=== PATIENT | female | born 1960 | race African-American/Black ===

== ENCOUNTER 2017-05-23 04:56 | Emergency (ER) | payer OTHER ==
[2017-05-23 05:14] VITALS: BP 145/93; PULSE 94; TEMP 98.4; BMI 25.2
--- NOTE | 2017-05-23 05:28 | PDOC ---
History of Present Illness - General Chief Complaint: Hematuria Stated Complaint: ABD PAIN Time Seen by Provider: 05/23/17 05:16 - History of Present Illness Initial Comments: 05/23/17 05:26 CHIEF COMPLAINT: hematuria HISTORY OF PRESENT ILLNESS: 56 yo F with hx of seasonal allergies presents to ED with hematuria and abdominal and lower back pain. Patient reports she has had a UTI before and states this "henrik feels like that." Patient denies any fever, chills, diarrhea, but reports vomiting "a couple times today." She denies any history of kidney stones. No recent travel or sick contacts. PAST MEDICAL HISTORY: Denies past medical history FAMILY HISTORY: Mother HTN, Father "heart problems" SOCIAL HISTORY: Denies tobacco, alcohol, illicit drug use. SURGICAL HISTORY: Denies ALLERGIES: No known drug allergies REVIEW OF SYSTEMS General/Constitutional: Denies fever or chills. Denies weakness, weight change. HEENT: Denies change in vision. Denies ear pain or discharge. Denies sore throat. Cardiovascular: Denies chest pain or shortness of breath. Respiratory: Denies cough, wheezing, or hemoptysis. Gastrointestinal: Vomiting x 2 tonight. Denies diarrhea or constipation. Denies rectal bleeding. Genitourinary: Blood in urine since this morning. Denies dysuria, frequency. Musculoskeletal: Denies joint or muscle swelling or pain. Denies neck or back pain. Skin and breasts: Denies rash or easy bruising. PHYSICAL EXAM General Appearance: Well-appearing, appropriately dressed. No apparent distress , no intoxication. HEENT: EOMI, PERRLA. No conjunctival pallor. No photophobia, scleral icterus. Respiratory/Chest: Lungs CTAB. Cardiovascular: RRR. S1, S2. Gastrointestinal/Abdominal: Normal bowel sounds. Abdomen soft, non-distended. No tenderness or rebound tenderness. No organomegaly, pulsatile mass, guarding , hernia, hepatomegaly, splenomegaly. Musculoskeletal/Extremities: L CVA tenderness. Normal inspection. FROM of all extremities, normal capillary refill. No tenderness to extremities, pedal edema , swelling, erythema or deformity. Integumentary: Appropriate color, dry, warm. No cyanosis, erythema, jaundice or rash Neurologic: gaming cashier II-XII intact. Fully oriented, alert. Appropriate mood/affect. Motor strength 5/5. No appreciable EOM palsy, facial droop or sensory deficit. Past History - Past Medical History Allergies/Adverse Reactions: Allergies Allergy/AdvReac Type Severity Reaction Status Date / Time No Known Allergies Allergy Verified 05/23/17 05:11 Home Medications: Ambulatory Orders Albuterol Sulfate Inhaler - [Ventolin HFA Inhaler -] 2 inh PO Q4H PRN #1 inh Sulfamethoxazole/Trimethoprim [Bactrim Ds -] 1 tab PO BID #28 tablet 05/23/17 Asthma: Yes (seasonal) - Immunization History Immunization Up to Date: Yes - Suicide/Smoking/Psychosocial Hx Smoking History: Never smoked Have you smoked in the past 12 months: No Number of Cigarettes Smoked Daily: 0 Cigars Per Day: 0 Information on smoking cessation initiated: No Hx Alcohol Use: No Drug/Substance Use Hx: No Substance Use Type: None *Physical Exam - Vital Signs Last Vital Signs Temp Pulse Resp BP Pulse Ox 98.4 F 94 H 14 145/93 98 05/23/17 05:12 05/23/17 05:12 05/23/17 05:12 05/23/17 05:12 05/23/17 05:12 ED Treatment Course - LABORATORY CBC & Chemistry Diagram: 05/23/17 07:23 05/23/17 07:23 Medical Decision Making - Medical Decision Making 05/23/17 05:28 56 yo F with hx of seasonal allergies presents to ED with hematuria and abdominal and lower back pain. -UA, UCx, Upreg UA +7000+RBC pending WBC Case discussed in detail with oncoming emergency provider including history, physical exam and ancillary studies. In brief, this patient is being seen in the ED for a chief complaint of: hematuria, left flank pain I have completed the initial assessment interview note and have ordered the following labs: UA, UCx I have reviewed the following results: UA, pending WBC Pending results: spiral CT Plan for disposition as follows: pending Oncoming SERGE Calvert has assumed care for the patient and will complete the evaluation and treatment. *DC/Admit/Observation/Transfer Diagnosis at time of Disposition: Hematuria - Discharge Dispostion Disposition: HOME Condition at time of disposition: Good - Prescriptions Prescriptions: Sulfamethoxazole/Trimethoprim [Bactrim Ds -] 1 tab PO BID #28 tablet - Referrals Referrals: Monroe Allen MD [Primary Care Provider] - - Patient Instructions Printed Discharge Instructions: DI for Urinary Tract Infection (UTI), DI for Hematuria Additional Instructions: At this time due to your complaints of abdominal pain and left back pain, you will be treated for urinary tract infection for the next 2 weeks. Please also follow-up with Dr. Gay carpenter rough as discussed. Return to the nearest ED if symptoms worsen despite antibiotics. Drink at least 2 liters of water daily. - Post Discharge Activity Forms/Work/School Notes: Back to Work
[2017-05-23 06:16] LABS: URINE APPEARANCE CLOUDY; URINE BILIRUBIN NEGATIVE (NEGATIVE); URINE BLOOD 3+ (NEGATIVE); URINE COLOR AMBER; URINE GLUCOSE (UA) NEGATIVE (NEGATIVE); URINE KETONE NEGATIVE (NEGATIVE); URINE NITRITE NEGATIVE (NEGATIVE); URINE UROBILINOGEN NEGATIVE mg/dL (0.2-1.0)
[2017-05-23 06:28] LABS: URINE PROTEIN 2+ (NEGATIVE)
[2017-05-23 06:38] LABS: URINE BACTERIA MANY /hpf (NONE SEEN); URINE MUCUS FEW; URINE RBC 7632 /hpf (0-3)
[2017-05-23] MEDS ORDERED: SODIUM CHLORIDE 0.9% 1000 ML INFUS.BAG IV ONE (06:58)
--- NOTE | 2017-05-23 07:11 | PDOC ---
*Physical Exam - Vital Signs Last Vital Signs Temp Pulse Resp BP Pulse Ox 98.4 F 94 H 14 145/93 98 05/23/17 05:12 05/23/17 05:12 05/23/17 05:12 05/23/17 05:12 05/23/17 05:12 - Physical Exam Comments: 05/23/17 07:10 bedside ultrasound shows poss bladder stone measuring 0.5x1cm in size. no hydro noted. ED Treatment Course - ADDITIONAL ORDERS Additional order review: Laboratory Results 05/23/17 05:46 Urine Color Merle Urine Appearance Cloudy Urine pH 5.0 Urine Protein 2+ H Urine Glucose (UA) Negative Urine Ketones Negative Urine Blood 3+ H Urine Nitrite Negative Urine Bilirubin Negative Urine Urobilinogen Negative Urine RBC 7632 Ur Epithelial Cells Few Urine Bacteria Many Urine Mucus Few Urine HCG, Qual Negative *DC/Admit/Observation/Transfer Diagnosis at time of Disposition: Hematuria
[2017-05-23 07:33] LABS: BASOPHIL 0.9 % (0-2.0); EOSINOPHIL 0.5 % (0-4.5); MCH 28.2 pg (25.7-33.7); MCHC 32.4 g/dl (32.0-36.0); MEAN CELL VOLUME 86.9 fl (80-96); MEAN PLT VOLUME 7.7 fl (7.5-11.1); NEUTROPHILS 71.9 % (42.8-82.8); PLATELET COUNT 348 K/MM3 (134-434); WHITE BLOOD COUNT 12.6 K/mm3 (4.0-10.0)
[2017-05-23 08:07] LABS: ALBUMIN 3.6 g/dl (3.4-5.0); ALK PHOS 113 U/L (45-117); ANION GAP 7 (8-16); BILIRUBIN,TOTAL 0.5 mg/dL (0.2-1.0); CALCIUM 8.9 mg/dL (8.5-10.1); CO2 29 mmol/L (21-32); CREATININE 0.8 mg/dL (0.55-1.02); GLUCOSE,RANDOM 98 mg/dL (74-106); SGPT/ALT 20 U/L (12-78); TOT PROT 8.3 g/dl (6.4-8.2)
[2017-05-23 08:10] LABS: INR 1.2 (0.82-1.09); PROTHROMBIN TIME (PATIENT) 13.6 SEC (9.98-11.88)
[2017-05-23 08:13] LABS: ACTIVATED PTT 29.6 SECONDS (26.9-34.4)
[2017-05-23 08:17] LABS: SGOT/AST 23 U/L (15-37)
[2017-05-23 08:27] LABS: URINE WBC 282 /hpf (3-5)
--- NOTE | 2017-05-23 09:15 | PDOC ---
*Physical Exam - Vital Signs Last Vital Signs Temp Pulse Resp BP Pulse Ox 98.4 F 94 H 14 145/93 98 05/23/17 05:12 05/23/17 05:12 05/23/17 05:12 05/23/17 05:12 05/23/17 05:12 ED Treatment Course - LABORATORY CBC & Chemistry Diagram: 05/23/17 07:23 05/23/17 07:23 - ADDITIONAL ORDERS Additional order review: Laboratory Results 05/23/17 05/23/17 05/23/17 07:23 07:23 07:23 PT with INR 13.60 H INR 1.20 H PTT (Actin FS) 29.6 Sodium 140 Potassium 5.1 D Chloride 104 Carbon Dioxide 29 Anion Gap 7 L BUN 9 D Creatinine 0.8 D Creat Clearance w eGFR > 60 Random Glucose 98 Calcium 8.9 Total Bilirubin 0.5 D AST 23 D ALT 20 Alkaline Phosphatase 113 Total Protein 8.3 H Albumin 3.6 Urine Color Urine Appearance Urine pH Urine Protein Urine Glucose (UA) Urine Ketones Urine Blood Urine Nitrite Urine Bilirubin Urine Urobilinogen Urine RBC Urine WBC Ur Epithelial Cells Urine Bacteria Urine Mucus Urine HCG, Qual Blood Type O POSITIVE Antibody Screen Negative 05/23/17 05:46 PT with INR INR PTT (Actin FS) Sodium Potassium Chloride Carbon Dioxide Anion Gap BUN Creatinine Creat Clearance w eGFR Random Glucose Calcium Total Bilirubin AST ALT Alkaline Phosphatase Total Protein Albumin Urine Color Merle Urine Appearance Cloudy Urine pH 5.0 Urine Protein 2+ H Urine Glucose (UA) Negative Urine Ketones Negative Urine Blood 3+ H Urine Nitrite Negative Urine Bilirubin Negative Urine Urobilinogen Negative Urine RBC 7632 Urine WBC 282 Ur Epithelial Cells Few Urine Bacteria Many Urine Mucus Few Urine HCG, Qual Negative Blood Type Antibody Screen 05/23/17 07:23 RBC 4.65 MCV 86.9 MCHC 32.4 RDW 15.0 MPV 7.7 D Neutrophils % 71.9 D Lymphocytes % 19.4 D Monocytes % 7.3 Eosinophils % 0.5 Basophils % 0.9 - Medications Given in the ED: ED Medications Discontinued Medications Generic Name Dose Route Start Last Admin Trade Name Freq PRN Reason Stop Dose Admin Sodium Chloride 1,000 ml 05/23/17 06:58 05/23/17 07:31 Normal Saline - IV 05/23/17 06:59 1,000 ml ONCE ONE Administration Medical Decision Making - Medical Decision Making 05/23/17 07:12 Patient received in sign out from MYKEL Balbuena. Patient with complaints of hematuria lower abdominal pain along with left CVA tenderness. Patient's labs reviewed. patient with 7000 red cells in urine. Spiral CT ordered. 05/23/17 09:[address] shows no renal, ureteral or urinary bladder calculus or obstructive uropathy. There is no evidence of acute diverticulitis and a normal appearing appendix is noted. Urinary bladder is unremarkable. No previous urine cultures on file. Due to patient's complaints and left CVA tenderness on exam patient will be treated for pyelonephritis with Bactrim. Urine culture was sent. *DC/Admit/Observation/Transfer Diagnosis at time of Disposition: Hematuria - Discharge Dispostion Disposition: HOME Condition at time of disposition: Good - Referrals Referrals: Monroe Allen MD [Primary Care Provider] - - Patient Instructions Printed Discharge Instructions: DI for Hematuria, DI for Urinary Tract Infection (UTI) Additional Instructions: At this time due to your complaints of abdominal pain and left back pain, you will be treated for urinary tract infection for the next 2 weeks. Please also follow-up with Dr. Gay sheet sewer as discussed. Return to the nearest ED if symptoms worsen despite antibiotics. Drink at least 2 liters of water daily. - Post Discharge Activity
[2017-05-23 17:48] LABS: URINE LEUK ESTERASE TRACE (NEGATIVE)
--- NOTE | 2017-05-25 16:38 | PDOC ---
Patient Follow-up (Call Back) - Post ED Follow - Up Condition at time of discharge: Good Disposition at time of original discharge: HOME Reason for Call Back: Abnwl. Microbiology (Urine showed Escherichia coli with sensitivity to cephalosporins and resistant to Bactrim. Patient ordered for Levaquin and will sweet pickle maker with [facility] pharmacy. She knows she is to stop the other antibiotic.)
== END 2017-05-23 09:24 | disposition home or self-care (01) ==
LOC: JER 04:56
DX: R31.9 Hematuria, unspecified (principal); N21.0 Calculus in bladder
CPT/HCPCS: 36415; 74176; 80053; 81003; 81015; 84703; 85025; 85610; 85730; 86850; 86900; 86901; 87086; 87186; 99282-25

== ENCOUNTER 2019-07-30 08:33 | Inpatient (IN) | payer OTHER ==
--- NOTE | 2019-07-30 09:45 | PDOC ---
History of Present Illness - General Chief Complaint: Tremors Stated Complaint: PARKINSONS SYMPTOMS Time Seen by Provider: 07/30/19 09:12 History Source: Patient Exam Limitations: No Limitations Past History - Travel Traveled outside of the country in the last 30 days: No Close contact w/someone who was outside of country & ill: No - Past Medical History Allergies/Adverse Reactions: Allergies Allergy/AdvReac Type Severity Reaction Status Date / Time No Known Allergies Allergy Verified 05/23/17 05:11 Home Medications: Ambulatory Orders Albuterol Sulfate Inhaler - [Ventolin HFA Inhaler -] 2 inh PO Q4H PRN #1 inh Carbidopa/Levodopa [Carbidopa-Levodopa 25-100 Tab] 1 each PO TID 07/30/19 Asthma: Yes (seasonal) COPD: No - Immunization History Immunization Up to Date: Yes - Psycho Social/Smoking Cessation Hx Smoking History: Never smoked Have you smoked in the past 12 months: No Number of Cigarettes Smoked Daily: 0 Cigars Per Day: 0 Information on smoking cessation initiated: No Hx Alcohol Use: No Drug/Substance Use Hx: No Substance Use Type: None Review of Systems - Review of Systems Able to Perform ROS?: Yes Comments:: 07/30/19 14:58 CONSTITUTIONAL: Absent: fever, chills, diaphoresis, generalized weakness, malaise, loss of appetite HEENT: Absent: rhinorrhea, nasal congestion, throat pain, throat swelling, difficulty swallowing, mouth swelling, ear pain, eye pain, visual Changes CARDIOVASCULAR: Absent: chest pain, loss of consciousness, palpitations, irregular heart rate, peripheral edema RESPIRATORY: Absent: cough, shortness of breath, dyspnea with exertion, orthopnea, wheezing, stridor, hemoptysis GASTROINTESTINAL: Absent: abdominal pain, abdominal distension, nausea, vomiting, diarrhea, constipation, melena, hematochezia GENITOURINARY: Absent: dysuria, frequency, urgency, hesitancy, hematuria, flank pain, genital pain MUSCULOSKELETAL: Absent: myalgia, arthralgia, joint swelling SKIN: Absent: rash, itching, pallor HEMATOLOGIC/IMMUNOLOGIC: Absent: easy bleeding, easy bruising, lymphadenopathy, frequent infections ENDOCRINE: Absent: unexplained weight gain, unexplained weight loss, heat intolerance, cold intolerance NEUROLOGIC: Present: unsteady gait, tremors Absent: headache, focal weakness or paresthesias , dizziness, unsteady gait, seizure, mental status changes, bladder or bowel incontinence PSYCHIATRIC: Absent: anxiety, depression, suicidal or homicidal ideation, hallucinations. Is the patient limited Telugu proficient: No *Physical Exam - Vital Signs Last Vital Signs Temp Pulse Resp BP Pulse Ox 97.2 F L 73 16 139/87 99 07/30/19 08:53 07/30/19 08:53 07/30/19 08:45 07/30/19 08:53 07/30/19 08:53 - Physical Exam 07/30/19 15:02 GENERAL: Well developed, well nourished. Awake and alert. No acute distress. HEENT: Normocephalic, atraumatic. PERRLA, EOMI. No conjunctival pallor. Sclera are non- icteric. Moist mucous membranes. Oropharynx is clear. NECK: Supple. Full ROM. No JVD. Carotid pulses 2+ and symmetric, without bruits. No thyromegaly. No lymphadenopathy. CARDIOVASCULAR: Regular rate and rhythm. No murmurs, rubs, or gallops. Distal pulses are 2+ and symmetric. PULMONARY: No evidence of respiratory distress. Lungs clear to auscultation bilaterally. No wheezing, rales or rhonchi. ABDOMINAL: Soft. Non-tender. Non-distended. No rebound or guarding. No organomegaly. Normoactive bowel sounds. MUSCULOSKELETAL Normal range of motion at all joints. No bony deformities or tenderness. No CVA tenderness. EXTREMITIES: No cyanosis. No clubbing. No edema. No calf tenderness. SKIN: Warm and dry. Normal capillary refill. No rashes. No jaundice. NEUROLOGICAL: Pt with noticeable tremor in hands bilaterally and left lower extremity. Strength is intact bilaterally to the lower extremities. Alert, awake, appropriate. Cranial nerves 2-12 intact. No deficits to light touch and temperature in face, upper extremities and lower extremities. No motor deficits in the in face, upper extremities and lower extremities. Normoreflexic in the upper and lower extremities. Normal speech. Toes are down-going bilaterally. Shuffled gait noted without ataxia. PSYCHIATRIC: Cooperative. Good eye contact. Appropriate mood and affect. ED Treatment Course - LABORATORY CBC & Chemistry Diagram: 07/30/19 10:16 07/30/19 10:16 Medical Decision Making - Medical Decision Making 07/30/19 15:04 The patient is a 58-year-old female past medical history of Parkinson's, diagnosed 3 weeks ago, who presents to the ER today for worsening tremors and difficulty walking. She states that this morning she had an episode where she had tremors to her legs arms and head that were more intense than usual. This lasted for approximately 15 minutes before it resolved. She states that it is difficult to walk and she feels like she is going to fall. She also admits to her lower extremities feeling "stiff "denies falling or hitting her head. Patient states she was diagnosed with Parkinson's approximately [address] Fajardo, [facility] neurology. Denies fevers, chills, lightheadedness, dizziness, nausea, vomiting, headache, neck pain, urinary symptoms. A/P: Parkinson's disease, difficulty walking On exam patient with shuffled gait noted. Patient is unable to take more than a few steps without falling towards her left side. Cranial nerves II through XII intact Basic labs show no electrolyte abnormality. Likely tremors and difficulty walking due to her Parkinson's disease. Tried to reach patient's neurologist Dr. Fajardo 3 times. The line just rang with no answering service. Consulted with Dr. Kang; advised to admit patient given inability to walk. He states he will see her in the hospital. Confirmed patient's medications with her pharmacy ([facility]) Takes her Sinemet as directed. PCP is Dr. Sarah Allen Will admit to [facility] for inability to ambulate Discharge - Discharge Information Problems reviewed: Yes Clinical Impression/Diagnosis: Unable to ambulate, Parkinsons Condition: Stable - Admission Yes - Follow up/Referral Referrals: Monroe Allen MD [Primary Care Provider] - - Patient Discharge Instructions - Post Discharge Activity
[2019-07-30 10:27] LABS: EPI CELLS 11.8 /HPF (0-5/HPF); HYALINE CASTS 42 /lpf (0-8); PH,URINE 5.5 (5.0-8.0); URINE APPEARANCE CLOUDY; URINE BACTERIA 239.5 /hpf (NEGATIVE); URINE BILIRUBIN NEGATIVE (NEGATIVE); URINE COLOR YELLOW; URINE GLUCOSE (UA) NEGATIVE (NEGATIVE); URINE KETONE 1+ (NEGATIVE); URINE LEUK ESTERASE TRACE (NEGATIVE); URINE NITRITE NEGATIVE (NEGATIVE); URINE PROTEIN NEGATIVE (NEGATIVE); URINE WBC 15 /hpf (0-5)
[2019-07-30 10:32] LABS: BASO % 1.3 % (0-2.0); HEMOGLOBIN 13.7 GM/dL (10.7-15.3); LYMPH % 27.8 % (8-40); MCH 28.8 pg (25.7-33.7); MCHC 32.7 g/dl (32.0-36.0); MEAN PLT VOLUME 8.4 fl (7.5-11.1); MONO % 6.2 % (3.8-10.2); NEUT % 63.7 % (42.8-82.8); PLATELET COUNT 249 K/MM3 (134-434); RBC 4.78 M/mm3 (3.60-5.2); RDW 15.5 % (11.6-15.6); WHITE BLOOD COUNT 6.3 K/mm3 (4.0-10.0)
[2019-07-30 11:05] LABS: URINE CRYSTALS FEW /hpf; URINE RBC 13.2 /hpf (0-4)
[2019-07-30 11:18] LABS: ALBUMIN 3.8 g/dl (3.4-5.0); BILIRUBIN,TOTAL 0.4 mg/dL (0.2-1); BLOOD UREA NITROGEN 12.1 mg/dL (7-18); CALCIUM 9.1 mg/dL (8.5-10.1); CREATININE 0.7 mg/dL (0.55-1.3); POTASSIUM 4.2 mmol/L (3.5-5.1); TOT PROT 7.4 g/dl (6.4-8.2)
[2019-07-30] MEDS ORDERED: CARBIDOPA/LEVODOPA 25/100 TABLET (FP) ONE (16:15)
[2019-07-30] MEDS ORDERED: ALBUTEROL SO4 0.083% IH SOL 2.5 MG/3 ML VIAL.NEB. NEB ONE (16:15)
--- NOTE | 2019-07-30 16:18 | HP ---
<Rose Marie Jones - Last Filed: 07/30/19 18:18> Hospitalist Medicine Admission 58 y/o F with PMH asthma and recently dx Parkinson's, states that this AM, she had a 15 minute episode of "shaking and tremors." Tremor first started in her upper and lower extremities, then was localized to her upper extremities. States she was unable to control it. Was not a/w LOC, fall, changes in mentation , weakness, urinary or bowel incontinence or tongue biting. States that once it improved, she was able to call a friend and her brother, who called 911 and she was subsequently brought to the [facility] ED. Currently, pt with resting tremor. Also endorses discomfort in her shoulders b/l as well as subjective chills. No other sx; denies CARDOZA, fever, SOB, chest pain or pressure or changes in urinary or bowel function. At baseline, pt lives independently. Was able to function on own and perform her ADL's, until she fell two weeks ago. Since then, she has had issues with her balance. Recently, she has also had visual hallucinations; seeing black and white spots in her vision when she opens and closes her eyes. 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 has been unable to work w/ her current sx. denies cigarette, alcohol, or drug use Allergies No Known Allergies Allergy (Verified 05/23/17 05:11) HOME MEDICATIONS: Home Medications Medication Instructions Recorded Albuterol Sulfate Inhaler - 2 inh PO Q4H PRN #1 inh 11/21/14 [Ventolin HFA Inhaler -] Carbidopa/Levodopa 1 each PO TID 07/30/19 [Carbidopa-Levodopa 25-100 Tab] PHYSICAL EXAMINATION Vital Signs - 24 hr 07/30/19 07/30/19 07/30/19 08:45 08:53 15:56 Temperature 97.6 F 97.2 F L 98.3 F Pulse Rate 96 H Pulse Rate [ 73 68 Left] Respiratory 16 Rate Blood Pressure 138/79 Blood Pressure 139/87 97/66 [Left] O2 Sat by Pulse 98 99 96 Oximetry (%) General: resting in bed, in NAD HEENT: NCAT, moist MM neck: supple cardio: S1, S2 RRR. 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 no pronator drift in UE, LE. however w/ resting tremor in UE, LE. +dysmetria. +cogwheel rigidity. +difficult gait; favors L Laboratory Results - last 24 hr 07/30/19 07/30/19 07/30/19 10:01 10:16 10:16 WBC 6.3 RBC 4.78 Hgb 13.7 Hct 42.0 MCV 88.0 MCH 28.8 MCHC 32.7 RDW 15.5 Plt Count 249 D MPV 8.4 Absolute Neuts (auto) 4.0 Neutrophils % 63.7 Lymphocytes % 27.8 D Monocytes % 6.2 Eosinophils % 1.0 D Basophils % 1.3 Nucleated RBC % 0 Sodium 141 Potassium 4.2 Chloride 106 Carbon Dioxide 29 Anion Gap 5 L BUN 12.1 Creatinine 0.7 Est GFR (CKD-EPI)AfAm 111.47 Est GFR (CKD-EPI)NonAf 96.18 Random Glucose 95 Calcium 9.1 Total Bilirubin 0.4 AST 14 L ALT 20 Alkaline Phosphatase 104 Total Protein 7.4 Albumin 3.8 Urine Color Yellow Urine Appearance Cloudy Urine pH 5.5 Ur Specific [place] 1.028 Urine Protein Negative Urine Glucose (UA) Negative Urine Ketones 1+ H Urine Blood Negative Urine Nitrite Negative Urine Bilirubin Negative Urine Urobilinogen 1.0 Ur Leukocyte Esterase Trace Urine WBC (Auto) 15 Urine RBC (Auto) 13.2 Urine Casts (Auto) 42 U Pathogenic Cast Auto None seen U Epithel Cells (Auto) 11.8 Urine Crystals (Auto) Few Urine Bacteria (Auto) 239.5 Micro 07/30: Ucx: pending Imaging 07/30: CXR: without acute abnormality; however report pending ASSESSMENT/PLAN: 58 y/o F with PMH asthma and recently dx Parkinson's, states that this AM, she had a 15 minute episode of "shaking and tremors." Admitted for inability to ambulate. #Essential Tremors, inability to ambulate #anxiety d/o -physical therapy -trial of klonopin, lexapro -f/u b12, folate, RPR -f/u brain MRI w/o con -fall precautions -neurochecks -neuro: Dr. Kang #parkinson's dz -c/w sinemet #asthma -currently not in exacerbation -c/w ventolin PRN #F/E/N not required at this time continue to follow lytes reg diet #PPX DVT: SCD's #Dispo admit to med-surg Visit type - Emergency Visit Emergency Visit: Yes ED Registration Date: 07/30/19 Care time: The patient presented to the Emergency Department on the above date and was hospitalized for further evaluation of their emergent condition. - New Patient This patient is new to me today: Yes Date on this admission: 07/30/19 - Critical Care Critical Care patient: No <Juno Pereyra - Last Filed: 08/02/19 02:42> Seen and examined; please refer to resident note for further historical information. I agree with their assessment and plan as documented aside from as supplemented by myself. I independently verified all baxter historical information and exam findings and independently reviewed all diagnostic information. No further issues; agree with subjective documentation above. In summation, the patient is a 58 y/o female with a PMH significant for PD with symptoms more with a diffuse rather than focal neurologic presentation, so to say. She has no further complaints and is doing well otherwise. Pending neuro eval and further diagnostics. Continue to monitor on the medicine service. 10 sys ROS done and negative aside from HPI HOME MEDICATIONS: Home Medications Medication Instructions Recorded Albuterol Sulfate Inhaler - 2 inh PO Q4H PRN #1 inh 11/21/14 [Ventolin HFA Inhaler -] Carbidopa/Levodopa 1 each PO TID 07/30/19 [Carbidopa-Levodopa 25-100 Tab] PHYSICAL EXAMINATION Vital Signs - 24 hr 07/30/19 07/30/19 07/30/19 15:56 17:30 17:40 Temperature 98.3 F 97.7 F Pulse Rate 90 Pulse Rate [ 68 Left] Respiratory 18 18 Rate Blood Pressure 128/72 Blood Pressure 97/66 [Left] O2 Sat by Pulse 96 98 Oximetry (%) 07/30/19 07/30/19 07/31/19 21:00 22:00 02:26 Temperature 98.5 F Pulse Rate 89 80 Pulse Rate [ Left] Respiratory 18 18 18 Rate Blood Pressure 102/68 125/82 Blood Pressure [Left] O2 Sat by Pulse 96 Oximetry (%) 07/31/19 07/31/19 07/31/19 06:41 09:00 10:00 Temperature 98.5 F 98.6 F Pulse Rate 69 82 Pulse Rate [ Left] Respiratory 18 18 18 Rate Blood Pressure 109/61 109/64 Blood Pressure [Left] O2 Sat by Pulse 96 Oximetry (%) GENERAL: Awake, alert, and fully oriented, in no acute distress. HEAD: Normal with no signs of trauma. EYES: Pupils equal, round and reactive to light, EARS, NOSE, THROAT: Ears normal, nares patent, oropharynx clear without exudates NECK: Normal range of motion, supple without lymphadenopathy, JVD, or masses. LUNGS: Breath sounds equal, clear to auscultation bilaterally. No wheezes, and no crackles. No accessory muscle use. HEART: Regular rate and rhythm, normal S1 and S2 without murmur, rub or gallop. ABDOMEN: Soft, nontender, not distended, normoactive bowel sounds MUSCULOSKELETAL: Normal range of motion at all joints. No bony deformities or tenderness. No CVA tenderness. NEUROLOGICAL: Cranial nerves II-XII intact. Normal speech. No gait eam due to fall risk. She has nonspecific weakness that is not focal. Tremor noted with some rigidity. PSYCHIATRIC: Cooperative. Good eye contact. Appropriate mood and affect. SKIN: Warm, dry, normal turgor, no rashes or lesions noted, normal capillary refill. Laboratory Results - last 24 hr 07/30/19 07/30/19 07/31/19 10:16 10:16 07:00 WBC 7.2 RBC 4.61 Hgb 13.3 Hct 41.0 MCV 89.0 MCH 28.9 MCHC 32.4 RDW 15.7 H Plt Count 241 MPV 9.1 Absolute Neuts (auto) 3.5 Neutrophils % 48.4 D Lymphocytes % 41.8 H D Monocytes % 6.2 Eosinophils % 2.7 D Basophils % 0.9 Nucleated RBC % 0 Sodium 141 Potassium 4.2 Chloride 106 Carbon Dioxide 29 Anion Gap 5 L BUN 12.1 Creatinine 0.7 Est GFR (CKD-EPI)AfAm 111.47 Est GFR (CKD-EPI)NonAf 96.18 Random Glucose 95 Calcium 9.1 Phosphorus Magnesium Total Bilirubin 0.4 AST 14 L ALT 20 Alkaline Phosphatase 104 Total Protein 7.4 Albumin 3.8 Vitamin B12 635 Serum Folate 33 H TSH 0.80 RPR Titer Nonreactive 07/31/19 07:00 WBC RBC Hgb Hct MCV MCH MCHC RDW Plt Count MPV Absolute Neuts (auto) Neutrophils % Lymphocytes % Monocytes % Eosinophils % Basophils % Nucleated RBC % Sodium 143 Potassium 3.9 Chloride 108 H Carbon Dioxide 27 Anion Gap 7 L BUN 17.8 Creatinine 0.7 Est GFR (CKD-EPI)AfAm 111.47 Est GFR (CKD-EPI)NonAf 96.18 Random Glucose 89 Calcium 9.2 Phosphorus 4.5 Magnesium 2.4 Total Bilirubin AST ALT Alkaline Phosphatase Total Protein Albumin Vitamin B12 Serum Folate TSH RPR Titer CT reviewed MRI pending echo pending ASSESSMENT/PLAN: 58 y/o F with PMH asthma and recently dx Parkinson's, states that this AM, she had a 15 minute episode of "shaking and tremors." Admitted for inability to ambulate. Agree with problem list per resident note Will obtain diagnostics as ordered but I have a very low suspicion of an acute neurological event persay. ontinue current CD/LD and monitor neuro checks and PT consultation. Full Code ATTENDING PHYSICIAN STATEMENT I saw and evaluated the patient. I reviewed the resident's note and discussed the case with the resident. I agree with the resident's findings and plan as documented. SUBJECTIVE: OBJECTIVE: ASSESSMENT AND PLAN:
[2019-07-30] MEDS: ALBUTEROL SO4 0.083% IH SOL 2.5 MG/3 ML VIAL.NEB. NEB PRN (17:00)
[2019-07-30] MEDS ORDERED: CARBIDOPA/LEVODOPA 25/100 TABLET (FP) PO ONE (17:10)
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
[2019-07-30 18:55] VITALS: BMI 23.9
[2019-07-30] MEDS: CARBIDOPA/LEVODOPA 25/100 TABLET (FP) PO SCH (21:34)
[2019-07-30] MEDS: clonazePAM 0.5 MG TABLET PO SCH (21:34)
[2019-07-31] MEDS: CARBIDOPA/LEVODOPA 25/100 TABLET (FP) PO SCH ×2 (06:15→13:53)
[2019-07-31 08:35] LABS: BASO % 0.9 % (0-2.0); EOS % 2.7 % (0-4.5); HEMOGLOBIN 13.3 GM/dL (10.7-15.3); LYMPH % 41.8 % (8-40); MCH 28.9 pg (25.7-33.7); MCHC 32.4 g/dl (32.0-36.0); MEAN PLT VOLUME 9.1 fl (7.5-11.1); MONO % 6.2 % (3.8-10.2); NEUT % 48.4 % (42.8-82.8); PLATELET COUNT 241 K/MM3 (134-434); RBC 4.61 M/mm3 (3.60-5.2); RDW 15.7 % (11.6-15.6); WHITE BLOOD COUNT 7.2 K/mm3 (4.0-10.0)
[2019-07-31 09:34] LABS: BLOOD UREA NITROGEN 17.8 mg/dL (7-18); CALCIUM 9.2 mg/dL (8.5-10.1); CREATININE 0.7 mg/dL (0.55-1.3); MAGNESIUM 2.4 mg/dL (1.8-2.4); PHOSPHOROUS 4.5 mg/dL (2.5-4.9); POTASSIUM 3.9 mmol/L (3.5-5.1)
[2019-07-31] MEDS: ESCITALOPRAM OXALATE 10 MG TABLET (FP) PO SCH (09:59)
[2019-07-31] MEDS: clonazePAM 0.5 MG TABLET PO SCH ×2 (10:01→21:56)
--- NOTE | 2019-07-31 10:07 | PN ---
Progress Note (short form) - Note Progress Note: Hospitalist Medicine States she feels better, however c/o 30 second episode of UE, LE tremors this AM that self-resolved. In good spirits currently, eating breakfast Vitals 07/31/19 10:00 Temperature 98.6 F Pulse Rate 82 Respiratory 18 Rate Blood Pressure 109/64 Physical Exam General: resting in bed, in NAD HEENT: NCAT, moist MM neck: supple cardio: S1, S2 RRR. 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 w/ resting tremor in UE, LE. +cogwheel rigidity. gait not observed Laboratory Tests 07/30/19 07/31/19 07/31/19 10:16 07:00 07:00 WBC 7.2 Hgb 13.3 Hct 41.0 Plt Count 241 Sodium 143 Potassium 3.9 Chloride 108 H Anion Gap 7 L BUN 17.8 Creatinine 0.7 Random Glucose 89 Calcium 9.2 RPR Titer Pending Microbiology 07/30/19 10:01 Urine - Urine Clean Catch Urine Culture - Final Lactose Fermenting Neg Bacilli (<10,000 cfu) Imaging 07/30/19 CXR: no acute changes; small RUL granuloma present since 11/2014, no adverse change 07/30/19: Brain MRI: no infarct. focal mildly increased T2/FLAIR intensity in the posterior limbs of the internal capsules bilaterally. this appearance may be noted in the setting of amyotrophic lateral sclerosis although also described in healthy patients. Assessment/Plan 58 y/o F with PMH asthma and recently dx Parkinson's, states that this AM, she had a 15 minute episode of "shaking and tremors." Admitted for inability to ambulate. #Essential Tremors, inability to ambulate #anxiety d/o -trial of klonopin, lexapro -b12, folate WNL -RPR pending -brain MRI (-) for infarct, however w/ increased signal intensity - ?r/o ALS -fall precautions -still pending PT evaluation -neurochecks -neuro: Dr. Kang #parkinson's dz -c/w sinemet #asthma -currently not in exacerbation -c/w ventolin PRN #F/E/N not required at this time continue to follow lytes reg diet #PPX DVT: SCD's #Dispo monitoring on med-surg pending PT , further neuro recs lives independently at home may need assistance <Rose Marie Jones - Last Filed: 07/31/19 14:13> - Note Progress Note: Seen and examined; please refer to above resident note for further historical information. Independently verified all baxter historical and PE findings alongside labs and diagnostics. I agree with the above plan as documented aside from as supplemented by myself below. Seen and examined; agree with subjective information as documented. 10 sys ROS done and negative aside from HPI VS labs imaging reviewed NAD AAO resting in bed NC AT EOMI PERRLA HR wnl, +s1/2 CN2-12 wnl, no fnd Normal mood, appropriate behavior Diagnostics reviewed ASSESSMENT/PLAN: Patient seen and examined;symptoms improved. Less likely acute CVA. Problems include: -Essential Tremors -Anxiety disorder -Parkinson's disease -Asthma -Deconditioing No change in code status Monitor on medicine service DVT ppx reviewed <Juno Pereyra - Last Filed: 08/04/19 13:06>
[2019-07-31] MEDS: ACETAMINOPHEN 500 MG TABLET (FP) PO PRN (11:15)
--- NOTE | 2019-07-31 17:12 | PN ---
Progress Note, Physician History of Present Illness: kasey noted chart reviewed Patient seen on the floor in the presence of her mother and her sister lengthy conversation with the family regarding the concussion that happened in June at work Patient is tolerating the medication very well patient looks and feels much better patient is on Klonopin Patient still on the carbidopa MRI noted - Current Medication List Current Medications: Active Medications Acetaminophen (Tylenol -) 500 mg PO Q6H PRN PRN Reason: PAIN LEVEL 7 - 10 Last Admin: 07/31/19 11:15 Dose: 500 mg Albuterol Sulfate (Ventolin 0.083% Nebulizer Soln -) 1 amp NEB RQ4H PRN PRN Reason: SHORT OF BREATH/WHEEZING Last Admin: 07/30/19 17:00 Dose: 1 amp Clonazepam (Klonopin -) 0.5 mg PO BID [facility] Last Admin: 07/31/19 10:01 Dose: 0.5 mg Escitalopram Oxalate (Lexapro -) 5 mg PO DAILY [facility] Last Admin: 07/31/19 09:59 Dose: 5 mg - Objective Vital Signs: Vital Signs Temperature 98.5 F 07/31/19 14:00 Pulse Rate 79 07/31/19 14:00 Respiratory Rate 18 07/31/19 14:00 Blood Pressure 98/56 L 07/31/19 14:00 O2 Sat by Pulse Oximetry (%) 96 07/31/19 09:00 Constitutional: Yes: Well Nourished Eyes: Yes: WNL HENT: Yes: WNL Neurological: Yes: Alert, Oriented, Babinski positive ...Motor Strength: WNL Labs: CBC, BMP 07/31/19 07:00 07/31/19 07:00 Problem List - Problems (1) Tremors of nervous system Assessment/Plan: NO EVIDENCE OF pARKINSON'S DISEASE NO EVIDENCE OF als MOTOR NEURON DISEASE aNXIETY 1. tAPER THE CARBIDOPA 2. cONTINUE THE kLONOPIN 3. lEXAPRO . dISCHARGE PLANNING Code(s): R25.1 - TREMOR, UNSPECIFIED
[2019-07-31] MEDS ORDERED: CARBIDOPA/LEVODOPA 25/100 TABLET (FP) PO ONE (17:30)
--- NOTE | 2019-08-01 05:20 | EKG ---
Test Reason : Blood Pressure : / mmHG Vent. Rate : 083 BPM Atrial Rate : 083 BPM P-R Int : 130 ms QRS Dur : 114 ms QT Int : 372 ms P-R-T Axes : 055 069 019 degrees QTc Int : 437 ms NORMAL SINUS RHYTHM INCOMPLETE RIGHT BUNDLE BRANCH BLOCK NONSPECIFIC T WAVE ABNORMALITY ABNORMAL ECG WHEN COMPARED WITH ECG OF 21-OCT-2013 19:53, NO SIGNIFICANT CHANGE WAS FOUND Confirmed by CODY DUTTON MD ([id number]) on 08/01/2019 5:20:21 AM Referred By: Confirmed By:CODY DUTTON MD
[2019-08-01 08:17] LABS: BLOOD UREA NITROGEN 18.1 mg/dL (7-18); CALCIUM 9.3 mg/dL (8.5-10.1); CREATININE 0.6 mg/dL (0.55-1.3); MAGNESIUM 2.3 mg/dL (1.8-2.4); PHOSPHOROUS 4.2 mg/dL (2.5-4.9); POTASSIUM 4.1 mmol/L (3.5-5.1)
[2019-08-01 08:22] LABS: BASO % 1.2 % (0-2.0); EOS % 4.7 % (0-4.5); HEMOGLOBIN 13.2 GM/dL (10.7-15.3); LYMPH % 37.5 % (8-40); MCH 28.5 pg (25.7-33.7); MCHC 32.1 g/dl (32.0-36.0); MEAN CELL VOLUME 88.7 fl (80-96); MEAN PLT VOLUME 8.8 fl (7.5-11.1); MONO % 6.5 % (3.8-10.2); NEUT % 50.1 % (42.8-82.8); PLATELET COUNT 230 K/MM3 (134-434); RBC 4.62 M/mm3 (3.60-5.2); RDW 15.8 % (11.6-15.6); WHITE BLOOD COUNT 5.5 K/mm3 (4.0-10.0)
[2019-08-01] MEDS: clonazePAM 0.5 MG TABLET PO SCH ×2 (10:46→21:03)
[2019-08-01] MEDS: ESCITALOPRAM OXALATE 10 MG TABLET (FP) PO SCH (10:46)
--- NOTE | 2019-08-01 11:49 | PN ---
Progress Note (short form) - Note Progress Note: Hospitalist Medicine Endorses 1 minute episode of tremors in upper and lower extremities this AM. Otherwise "feeling better" Vitals 08/01/19 08/01/19 10:29 10:45 Temperature 98.6 F Pulse Rate 89 Respiratory 20 Rate Blood Pressure 112/77 Physical Exam General: resting in bed, in NAD HEENT: NCAT, moist MM neck: supple cardio: S1, S2 RRR. 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 +cogwheel rigidity. gait not observed Laboratory Tests 07/30/19 08/01/19 08/01/19 10:16 06:40 06:40 WBC 5.5 Hgb 13.2 Hct 41.0 Plt Count 230 Sodium 142 Potassium 4.1 Chloride 107 Carbon Dioxide 30 BUN 18.1 H Creatinine 0.6 Est GFR (CKD-EPI)NonAf 101.18 RPR Titer Nonreactive Microbiology 07/30/19 10:01 Urine - Urine Clean Catch Urine Culture - Final Lactose Fermenting Neg Bacilli (<10,000) Imaging 07/30/19 CXR: no acute changes; small RUL granuloma present since 11/2014, no adverse change 07/30/19: Brain MRI: no infarct. focal mildly increased T2/FLAIR intensity in the posterior limbs of the internal capsules bilaterally. this appearance may be noted in the setting of amyotrophic lateral sclerosis although also described in healthy patients. Assessment/Plan 58 y/o F with PMH asthma and recently dx Parkinson's, states that this AM, she had a 15 minute episode of "shaking and tremors." Admitted for inability to ambulate. #Essential Tremors, inability to ambulate #anxiety d/o -trial of klonopin, lexapro -b12, folate WNL -brain MRI (-) for infarct, however w/ increased signal intensity - ?r/o ALS -fall precautions -still pending PT evaluation; may need SNF placement -neurochecks -neuro: Dr. Kang #parkinson's dz -taper sinemet #asthma -currently not in exacerbation -c/w ventolin PRN #F/E/N not required at this time continue to follow lytes reg diet #PPX DVT: SCD's #Dispo monitoring on med-surg pending PT will likely need placement as lives independently at home cleared by neuro <Rose Marie Jones - Last Filed: 08/01/19 12:52> - Note Progress Note: Seen and examined; please refer to above resident note for further historical information. Independently verified all baxter historical and PE findings alongside labs and diagnostics. I agree with the above plan as documented aside from as supplemented by myself below. Seen and examined; agree with subjective information as documented. 10 sys ROS done and negative aside from HPI VS labs imaging reviewed NAD AAO resting in bed NC AT EOMI PERRLA HR wnl, +s1/2 CN2-12 wnl, no fnd Normal mood, appropriate behavior Diagnostics reviewed ASSESSMENT/PLAN: Patient seen and examined; she is doing well and is continuing to pend placement. Problems include: -Essential Tremors (was admitted for acute exacerbation, affecting ambulation now resolved, patient is able to ambulate; cleared by Neurology) -Anxiety disorder (on Klonopin and Lexapro adjust dose accordingly; was seen by Dr. Kang neurology, patient is for 5Flurodopa PET at [place] [facility]. Improved off carbidopa.) -Parkinson's disease (per neuro, d/c carbidopa, since this anxiety improved) -Asthma (No acute issues, PRN albuterol) -Deconditioing (SNF placement pending authorization) No change in code status Monitor on medicine service DVT ppx reviewed <Juno Pereyra - Last Filed: 08/04/19 13:04>
--- NOTE | 2019-08-01 19:05 | PN ---
Progress Note, Physician History of Present Illness: fells better events note d Chart reviwed alert awake Tolerating meds well No side effects to taper dopa - Current Medication List Current Medications: Active Medications Acetaminophen (Tylenol -) 500 mg PO Q6H PRN PRN Reason: PAIN LEVEL 7 - 10 Last Admin: 07/31/19 11:15 Dose: 500 mg Albuterol Sulfate (Ventolin 0.083% Nebulizer Soln -) 1 amp NEB RQ4H PRN PRN Reason: SHORT OF BREATH/WHEEZING Last Admin: 07/30/19 17:00 Dose: 1 amp Clonazepam (Klonopin -) 0.5 mg PO BID [facility] Last Admin: 08/01/19 10:46 Dose: 0.5 mg Escitalopram Oxalate (Lexapro -) 5 mg PO DAILY [facility] Last Admin: 08/01/19 10:46 Dose: 5 mg - Objective Vital Signs: Vital Signs Temperature 98.8 F 08/01/19 14:00 Pulse Rate 78 08/01/19 14:00 Respiratory Rate 20 08/01/19 14:00 Blood Pressure 107/65 08/01/19 14:00 O2 Sat by Pulse Oximetry (%) 97 08/01/19 10:30 Constitutional: Yes: Well Nourished Eyes: Yes: WNL Neurological: Yes: Alert, Oriented, Babinski negative ...Motor Strength: WNL Labs: CBC, BMP 08/01/19 06:40 08/01/19 06:40 Problem List - Problems (1) Tremors of nervous system Assessment/Plan: 1. Stop carbidopa 2. Lexapro 10 3. Tylenol prn headache 4. Will arrange for 5Flurodopa PET Ct at [place] as OP DC planning Code(s): R25.1 - TREMOR, UNSPECIFIED
[2019-08-02] MEDS: ESCITALOPRAM OXALATE 10 MG TABLET (FP) PO SCH (08:27)
[2019-08-02] MEDS: clonazePAM 0.5 MG TABLET PO SCH ×2 (10:32→22:16)
[2019-08-02 10:42] LABS: BLOOD UREA NITROGEN 18.8 mg/dL (7-18); CALCIUM 9.1 mg/dL (8.5-10.1); CREATININE 0.8 mg/dL (0.55-1.3); MAGNESIUM 2.2 mg/dL (1.8-2.4); PHOSPHOROUS 4.1 mg/dL (2.5-4.9); POTASSIUM 4.2 mmol/L (3.5-5.1)
[2019-08-02 10:53] LABS: HEMATOCRIT 41.8 % (32.4-45.2); HEMOGLOBIN 13.6 GM/dL (10.7-15.3); MCH 29.3 pg (25.7-33.7); MCHC 32.7 g/dl (32.0-36.0); MEAN CELL VOLUME 89.6 fl (80-96); PLATELET COUNT 233 K/MM3 (134-434); RBC 4.66 M/mm3 (3.60-5.2); RDW 15.4 % (11.6-15.6); WHITE BLOOD COUNT 6.1 K/mm3 (4.0-10.0)
--- NOTE | 2019-08-02 15:17 | PN ---
Progress Note (short form) - Note Progress Note: Hospitalist Medicine Feeling better today. Still endorses intermittent "shaking" episodes. Encouraged ambulation Vitals 08/02/19 10:27 Temperature 98.6 F Pulse Rate 71 Respiratory 20 Rate Blood Pressure 111/71 Physical Exam General: resting in bed, in NAD HEENT: NCAT, moist MM neck: supple cardio: S1, S2 RRR. no r/m/g pulm: CTA B/l abdomen: soft, nontender, nondistended LE: 2+ pulses, no edema neuro: product support consultant 2-12 grossly intact. +cogwheel rigidity. 3/5 motor strength UE, LE gait not observed Laboratory Tests 08/02/19 08/02/19 09:30 09:30 WBC 6.1 Hgb 13.6 Hct 41.8 Plt Count 233 Sodium 139 Potassium 4.2 Chloride 105 Anion Gap 7 L BUN 18.8 H Creatinine 0.8 Random Glucose 115 H Microbiology 07/30/19 10:01 Urine - Urine Clean Catch Urine Culture - Final Lactose Fermenting Neg Bacilli (<10,000) Imaging 07/30/19 CXR: no acute changes; small RUL granuloma present since 11/2014, no adverse change 07/30/19: Brain MRI: no infarct. focal mildly increased T2/FLAIR intensity in the posterior limbs of the internal capsules bilaterally. this appearance may be noted in the setting of amyotrophic lateral sclerosis although also described in healthy patients. Assessment/Plan 58 y/o F with PMH asthma and recently dx Parkinson's, states that this AM, she had a 15 minute episode of "shaking and tremors." Admitted for inability to ambulate. #Essential Tremors, inability to ambulate #anxiety d/o -c/w klonopin, lexapro dose increased to 10mg qd -b12, folate WNL -brain MRI (-) for infarct, however w/ increased signal intensity - ?r/o ALS -fall precautions -may need SNF placement -per neuro, for 5Flurodopa PET at Home as outpatient -neurochecks -neuro: Dr. Kang #parkinson's dz -per neuro, d/c carbidopa #asthma -currently not in exacerbation -c/w ventolin PRN #F/E/N not required at this time continue to follow lytes reg diet #PPX DVT: SCD's #Dispo monitoring on med-surg pending need placement as lives independently at home cleared by neuro for 5Flurodopa PET at Home as outpatient
--- NOTE | 2019-08-02 17:24 | PN ---
Teaching Attending Note Name of Resident: Rose Marie Jones ATTENDING PHYSICIAN STATEMENT I saw and evaluated the patient. I reviewed the resident's note and discussed the case with the resident. I agree with the resident's findings and plan as documented. 58 y/o F with PMHx of asthma and recently dx Parkinson's, essential tremor, anxiety disorder, admitted for acute exacerbation of essential tremor which affected her ambulation. Patient endorses tremor improved, now able to ambulate , cleared by neurology, [facility]. Physical Exam General: resting in bed, in NAD, AAox3, Speaks in full sentences HEENT: NC/AT, EOMI, neck supple, no tongue fasiculations cardio: S1, S2 RRR. No m/r/g appreciated pulm: CTAB, no wheezing or crackles abdomen: Soft, NT, ND, BS+, no guarding LE: 2+ pulses, no edema, moves both legs neuro: CN 2-12 grossly intact Vital Signs - 24 hr 08/01/19 08/01/19 08/02/19 21:00 22:00 06:00 Temperature 99.1 F 98.0 F Pulse Rate 80 72 Respiratory 20 18 17 Rate Blood Pressure 107/64 115/71 O2 Sat by Pulse 97 Oximetry (%) 08/02/19 08/02/19 08/02/19 10:27 10:35 14:54 Temperature 98.6 F 98.4 F Pulse Rate 71 80 Respiratory 20 20 Rate Blood Pressure 111/71 128/76 O2 Sat by Pulse 97 Oximetry (%) Laboratory Results - last 24 hr 08/02/19 08/02/19 09:30 09:30 WBC 6.1 RBC 4.66 Hgb 13.6 Hct 41.8 MCV 89.6 MCH 29.3 MCHC 32.7 RDW 15.4 Plt Count 233 MPV 9.0 Sodium 139 Potassium 4.2 Chloride 105 Carbon Dioxide 27 Anion Gap 7 L BUN 18.8 H Creatinine 0.8 Est GFR (CKD-EPI)AfAm 94.85 Est GFR (CKD-EPI)NonAf 81.84 Random Glucose 115 H Calcium 9.1 Phosphorus 4.1 Magnesium 2.2 Current Medications Generic Name Dose Route Start Last Admin Trade Name Freq PRN Reason Stop Dose Admin Acetaminophen 500 mg 07/31/19 10:44 07/31/19 11:15 Tylenol - PO 500 mg Q6H PRN Administration PAIN LEVEL 7 - 10 Albuterol Sulfate 1 amp 07/30/19 16:12 07/30/19 17:00 Ventolin 0.083% Nebulizer Soln - NEB 1 amp RQ4H PRN Administration SHORT OF BREATH/WHEEZING Clonazepam 0.5 mg 07/30/19 22:00 08/02/19 10:32 Klonopin - PO 0.5 mg BID JEIMY Administration Escitalopram Oxalate 10 mg 08/02/19 07:30 08/02/19 08:27 Lexapro - PO 10 mg DAILY JEIMY Administration A/P: 58 F h/o essential tremor, Parkinson's, asthma, anxiety disorder, patient admitted for acute exacerbation of essential tremor in which she states has affected her ambulation, patient tremor improved, patient states she now able to ambulate independently. Essential Tremors was admitted for acute exacerbation, affecting ambulation now resolved, patient is able to ambulate cleared by Neurology Anxiety disorder -improved, not in acute exacerbation Cont. Klonopin and Lexapro adjust dose accordingly Seen by Dr. Kang neurology, patient is for 5Flurodopa PET at [facility] as outpatient Parkinson's disease -per neuro, d/c carbidopa, since this anxiety improved Asthma not in acute exacerbation, CTAB on exam albuterol PRN for SOB Disposition awaiting placement for SNF Cleared by Neurology for outpatient follow up
[2019-08-03 07:58] LABS: BASO % 1.3 % (0-2.0); EOS % 5.4 % (0-4.5); HEMATOCRIT 41.9 % (32.4-45.2); HEMOGLOBIN 13.7 GM/dL (10.7-15.3); LYMPH % 38.1 % (8-40); MCH 28.9 pg (25.7-33.7); MCHC 32.6 g/dl (32.0-36.0); MEAN CELL VOLUME 88.5 fl (80-96); MONO % 6.9 % (3.8-10.2); NEUT % 48.3 % (42.8-82.8); PLATELET COUNT 232 K/MM3 (134-434); RBC 4.74 M/mm3 (3.60-5.2); RDW 15.6 % (11.6-15.6); WHITE BLOOD COUNT 7.2 K/mm3 (4.0-10.0)
[2019-08-03 08:13] LABS: MAGNESIUM 2.1 mg/dL (1.8-2.4); PHOSPHOROUS 4.5 mg/dL (2.5-4.9)
[2019-08-03] MEDS: ALBUTEROL SO4 0.083% IH SOL 2.5 MG/3 ML VIAL.NEB. NEB PRN ×2 (08:17→19:40)
[2019-08-03] MEDS: ESCITALOPRAM OXALATE 10 MG TABLET (FP) PO SCH (09:05)
[2019-08-03] MEDS: clonazePAM 0.5 MG TABLET PO SCH ×2 (09:05→22:06)
[2019-08-03] MEDS: ACETAMINOPHEN 500 MG TABLET (FP) PO PRN (09:07)
[2019-08-03] MEDS ORDERED: INSULIN (NOVOLOG) ASPART 100 UNITS/ML 10ML VIAL ONE (12:47)
--- NOTE | 2019-08-03 13:16 | PN ---
Physical Exam: SUBJECTIVE: Patient seen and examined; no further issues noted. We are pending discharge to her SNF. Noted yesterday's events and I appreciate the coverage. 10 sys ROS done and negative aside from HPI OBJECTIVE: Vital Signs Period Temp Pulse Resp BP Sys/Wilhelm Pulse Ox Last 24 Hr 98 F-98.4 F 67-80 18-20 118-128/66-76 97-99 GENERAL: The patient is awake, alert, and fully oriented, in no acute distress. HEAD: Normal with no signs of trauma. EYES: PERRL, extraocular movements intact, sclera anicteric, conjunctiva clear. No ptosis. ENT: Ears normal, nares patent, oropharynx clear without exudates, moist mucous membranes. NECK: Trachea midline, full range of motion, supple. LUNGS: Breath sounds equal, clear to auscultation bilaterally, no wheezes, no crackles, no accessory muscle use. HEART: Regular rate and rhythm, S1, S2 without murmur, rub or gallop. ABDOMEN: Soft, nontender, nondistended, normoactive bowel sounds, no guarding, no rebound, no hepatosplenomegaly, no masses. EXTREMITIES: 2+ pulses, warm, well-perfused, no edema. NEUROLOGICAL: Cranial nerves II through XII grossly intact. Normal speech, gait not observed. PSYCH: Normal mood, normal affect. SKIN: Warm, dry, normal turgor, no rashes or lesions noted Laboratory Results - last 24 hr 08/03/19 08/03/19 06:40 06:40 WBC 7.2 RBC 4.74 Hgb 13.7 Hct 41.9 MCV 88.5 MCH 28.9 MCHC 32.6 RDW 15.6 Plt Count 232 MPV 9.0 Absolute Neuts (auto) 3.5 Neutrophils % 48.3 Lymphocytes % 38.1 Monocytes % 6.9 Eosinophils % 5.4 H Basophils % 1.3 Nucleated RBC % 0 Phosphorus 4.5 Magnesium 2.1 Active Medications Generic Name Dose Route Start Last Admin Trade Name Freq PRN Reason Stop Dose Admin Acetaminophen 500 mg 07/31/19 10:44 08/03/19 09:07 Tylenol - PO 500 mg Q6H PRN Administration PAIN LEVEL 7 - 10 Albuterol Sulfate 1 amp 07/30/19 16:12 08/03/19 08:17 Ventolin 0.083% Nebulizer Soln - NEB 1 amp RQ4H PRN Administration SHORT OF BREATH/WHEEZING Clonazepam 0.5 mg 07/30/19 22:00 08/03/19 09:05 Klonopin - PO 0.5 mg BID JEIMY Administration Escitalopram Oxalate 10 mg 08/02/19 07:30 08/03/19 09:05 Lexapro - PO 10 mg DAILY JEIMY Administration ASSESSMENT/PLAN: Patient seen and examined; she is doing well and is continuing to pend placement. Problems include: -Essential Tremors (was admitted for acute exacerbation, affecting ambulation now resolved, patient is able to ambulate; cleared by Neurology) -Anxiety disorder (on Klonopin and Lexapro adjust dose accordingly; was seen by Dr. Kang neurology, patient is for 5Flurodopa PET at [facility]. Improved off carbidopa.) -Parkinson's disease (per neuro, d/c carbidopa, since this anxiety improved) -Asthma (No acute issues, PRN albuterol) -Deconditioing (SNF placement pending authorization) No change in code status Monitor on medicine service DVT ppx reviewed Pending Authorization Visit type - Emergency Visit Emergency Visit: Yes ED Registration Date: 07/30/19 Care time: The patient presented to the Emergency Department on the above date and was hospitalized for further evaluation of their emergent condition. - New Patient This patient is new to me today: Yes Date on this admission: 08/03/19 - Critical Care Critical Care patient: No
[2019-08-04] MEDS: clonazePAM 0.5 MG TABLET PO SCH ×2 (09:27→22:04)
[2019-08-04] MEDS: ESCITALOPRAM OXALATE 10 MG TABLET (FP) PO SCH (09:27)
[2019-08-04] MEDS: ACETAMINOPHEN 500 MG TABLET (FP) PO PRN ×2 (12:20→22:03)
--- NOTE | 2019-08-04 13:08 | PN ---
Physical Exam: SUBJECTIVE: Patient seen and examined; no further issues. Discussing with Brian in regarding placement issues. Hopeful DC tomorrow. 10 sys ROS done and negative aside from HPI OBJECTIVE: Vital Signs Period Temp Pulse Resp BP Sys/Wilhelm Pulse Ox Last 24 Hr 97.6 F-98.4 F 68-81 18-20 99-128/60-75 97-97 VS labs imaging reviewed Tremors improved, CN2-12 wnl, no fnd Normal mood, appropriate behavior NT ND +BS HR wnl, +S1/2 Trachea midline, no LN Lungs CTAB, w/ sym exp Active Medications Generic Name Dose Route Start Last Admin Trade Name Freq PRN Reason Stop Dose Admin Acetaminophen 500 mg 07/31/19 10:44 08/04/19 12:20 Tylenol - PO 500 mg Q6H PRN Administration PAIN LEVEL 7 - 10 Albuterol Sulfate 1 amp 07/30/19 16:12 08/03/19 19:40 Ventolin 0.083% Nebulizer Soln - NEB 1 amp RQ4H PRN Administration SHORT OF BREATH/WHEEZING Clonazepam 0.5 mg 07/30/19 22:00 08/04/19 09:27 Klonopin - PO 0.5 mg BID JEIMY Administration Escitalopram Oxalate 10 mg 08/02/19 07:30 08/04/19 09:27 Lexapro - PO 10 mg DAILY JEIMY Administration ASSESSMENT/PLAN: Patient seen and examined; she is doing well and is continuing to pend placement. Problems include: -Essential Tremors (was admitted for acute exacerbation, affecting ambulation now resolved, patient is able to ambulate; cleared by Neurology) -Anxiety disorder (on Klonopin and Lexapro adjust dose accordingly; was seen by Dr. Kang neurology, patient is for 5Flurodopa PET at [place] [facility]. Improved off carbidopa.) -Parkinson's disease (per neuro, d/c carbidopa, since this anxiety improved) -Asthma (No acute issues, PRN albuterol) -Deconditioing (SNF placement pending authorization) No change in code status Monitor on medicine service DVT ppx reviewed Pending Authorization Visit type - Emergency Visit Emergency Visit: Yes ED Registration Date: 07/30/19 Care time: The patient presented to the Emergency Department on the above date and was hospitalized for further evaluation of their emergent condition. - New Patient This patient is new to me today: No - Critical Care Critical Care patient: No
[2019-08-05] MEDS: ESCITALOPRAM OXALATE 10 MG TABLET (FP) PO SCH (09:15)
[2019-08-05] MEDS: clonazePAM 0.5 MG TABLET PO SCH (09:15)
[2019-08-05 10:34] VITALS: BP 116/63; PULSE 67; TEMP 98.3
--- NOTE | 2019-08-05 14:10 | DS ---
Physical Exam: SUBJECTIVE: Patient seen and examined at bedside. Endorses improved tremors. Ambulated > 100 feet with PT. Case discussed thoroughly w/ sisters Sophie (in person) and Alexandra (over phone). In agreement of plan. OBJECTIVE: Vital Signs Period Temp Pulse Resp BP Sys/Wilhelm Pulse Ox Last 24 Hr 97.5 F-99.1 F 67-83 18-20 105-116/58-71 99-99 Physical Exam General: resting in bed, in NAD HEENT: NCAT, moist MM neck: supple cardio: S1, S2 RRR. no r/m/g pulm: CTA B/l abdomen: soft, nontender, nondistended LE: 2+ pulses, no edema neuro: door clamper 2-12 grossly intact. +cogwheel rigidity. 3/5 motor strength UE, LE gait not observed LABS Laboratory Tests 07/30/19 07/31/19 08/01/19 10:16 07:00 06:40 WBC 6.3 7.2 5.5 Hgb 13.7 13.3 13.2 Hct 42.0 41.0 41.0 RDW 15.5 Plt Count 249 D 241 230 08/02/19 08/03/19 09:30 06:40 WBC 6.1 7.2 Hgb 13.6 13.7 Hct 41.8 41.9 RDW Plt Count 233 232 07/30/19 07/31/19 08/01/19 10:16 07:00 06:40 Sodium 141 143 142 Potassium 4.2 3.9 4.1 Carbon Dioxide 29 27 30 Anion Gap 5 L 7 L 5 L Creatinine 0.7 0.7 0.6 Random Glucose 95 89 82 08/02/19 09:30 Sodium 139 Potassium 4.2 Carbon Dioxide 27 Anion Gap 7 L Creatinine 0.8 Random Glucose 115 H 07/30/19 10:16 Total Bilirubin 0.4 AST 14 L ALT 20 Alkaline Phosphatase 104 Total Protein 7.4 Albumin 3.8 Vitamin B12 635 Serum Folate 33 H TSH 0.80 07/30/19 10:01 Urine Ketones 1+ H Urine Blood Negative Urine Nitrite Negative Urine Bilirubin Negative Urine Urobilinogen 1.0 Ur Leukocyte Esterase Trace Urine WBC (Auto) 15 Urine RBC (Auto) 13.2 Urine Casts (Auto) 42 07/30/19 10:16 RPR Titer Nonreactive Microbiology 07/30/19 10:01 Urine - Urine Clean Catch Urine Culture - Final Lactose Fermenting Neg Bacilli (<10,000) Imaging 07/30/19 CXR: no acute changes; small RUL granuloma present since 11/2014, no adverse change 07/30/19: Brain MRI: no infarct. focal mildly increased T2/FLAIR intensity in the posterior limbs of the internal capsules bilaterally. this appearance may be noted in the setting of amyotrophic lateral sclerosis although also described in healthy patients. HOSPITAL COURSE: Date of Admission:07/30/19 Date of Discharge: 08/05/19 58 y/o F with PMH asthma and recently dx Parkinson's, states that this AM, she had a 15 minute episode of "shaking and tremors." Admitted for inability to ambulate. #Essential Tremors, inability to ambulate #anxiety d/o -c/w lexapro dose increased to 10mg qd -b12, folate WNL -brain MRI (-) for infarct, however w/ increased signal intensity - ?r/o ALS -fall precautions -per neuro, for 5Flurodopa PET at [facility] as outpatient; however d/w pt, sisters, Alexandra and Sophie at length - need to find out if can be done at [facility] -to follow with Dr. Kang to determine whether to continue klonopin 0.5mg BID -neurochecks -neuro: Dr. Kang ; has been cleared for dc #parkinson's dz -unclear whether pt definitively has -f/u PET imaging -per neuro, d/c carbidopa #asthma -currently not in exacerbation -c/w ventolin PRN Minutes to complete discharge: 45 <Rose Marie Jones - Last Filed: 08/05/19 14:10> Physical Exam: Date of Admission:07/30/19 Seen and examined; please see resident note for further historical information. I personally verified all baxter historical information and exam findings. Personally interpreted all imaging and diagnostics and reviewed appropriate consults. I reviewed all labs and vital signs as per resident note and EMR as documented. I agree with the above assessment and plan unless supplemented by myself in the following. 10 item review of systems completed and is negative aside from as discussed in the subjective data in my own/the resident documentation. VS, labs, imaging reviewed NAD, AAO, resting comfortably in bed. RRR s1/2 no mgr Normal muscle tone, moves all 5 extremities with normal apparent strength Neck is supple, trachea midline, no jyotsna LN Lungs CTAB with sym expansion NT ND +BS no jyotsna organomegaly CN2-12 wnl; no FND NC AT EOMI PERRLA Normal mood, appropriate behavior, euthymic affect No skin breakdown or rashes noted Assessment and plan: Patient remained inpatient over the weekend due to no placement being available at the current juncture. They remain stable with no new complaints or medical issues and during good spirits. Discussed with her family nursing. Discharge will be facilitated today <Juno Pereyra - Last Filed: 08/18/19 19:00> Discharge Summary Problems reviewed: Yes Reason For Visit: PARKINSONS DISEASE; UNABLE TO WALK Current Active Problems Parkinsons (Acute) Tremors of nervous system (Acute) Unable to ambulate (Acute) Asthma (Chronic) - Home Medications Comprehensive Discharge Medication List: Ambulatory Orders Albuterol Sulfate Inhaler - [Ventolin HFA Inhaler -] 2 inh PO Q4H PRN #1 inh Escitalopram Oxalate [Lexapro -] 10 mg PO DAILY #30 tablet 08/05/19 clonazePAM [Klonopin -] 0.5 mg PO BID #60 tablet MDD 1mg 08/05/19 <Rose Marie Jones - Last Filed: 08/05/19 14:10> - Home Medications Comprehensive Discharge Medication List: Ambulatory Orders Albuterol Sulfate Inhaler - [Ventolin HFA Inhaler -] 2 inh PO Q4H PRN #1 inh Escitalopram Oxalate [Lexapro -] 10 mg PO DAILY #30 tablet 08/05/19 clonazePAM [Klonopin -] 0.5 mg PO BID #60 tablet MDD 1mg 08/05/19 <Juno Pereyra - Last Filed: 08/18/19 19:00> Condition: Stable - Instructions Diet, Activity, Other Instructions: You were in the hospital because you were having tremors in your arms and legs. You underwent a brain MRI which showed you may have increased intensity in the "posterior limbs of the internal capsules bilaterally." This may have caused your symptoms, or they may have also been caused by anxiety. You were seen by a neurologist, physical therapist, and the primary medicine team. You improved and are being discharged. Medications 1. For anxiety, you will also continue with the medication, Lexapro 10mg (1 pill ) daily. 2. You may continue your home medications including your albuterol inhaler for asthma. 3. Do not take carbidopa-levodopa (sinemet) this has been held by the neurologist. You will need to follow with him to determine if this can be continued. Care Please use care when walking in your home, to avoid falls. Avoid sedating medications. Testing You will need to have 5-Fluorodopa PET imaging done as an outpatient. You can discuss this with Dr. Kang, your neurologist. upon your discharge, we have discussed that you would prefer to have this done at [facility]. Follow up Please follow with the following doctors on your discharge: -Dr. Allen, your primary care physician - this week to discuss your visit -Dr. Kang, your neurologist- this week to discuss your symptoms and medications. He will determine whether you continue on klonopin or not for anxiety. You will need to have 5-Fluorodopa PET imaging done - you will need to discuss with him whether this can be done at [facility] or not, as you are unable to go to [facility] in the [facility], as you mentioned Referrals: Monroe Allen MD [Primary Care Provider] - 08/08/19 Paulino Kang MD [Staff Physician] - 1 Week Disposition: HOME This patient is new to me today: No Emergency Visit: No Critical Care patient: No - Discharge Referral Referred to [facility] No <Rose Marie Jones - Last Filed: 08/05/19 14:10> ATTENDING PHYSICIAN STATEMENT I saw and evaluated the patient. I reviewed the resident's note and discussed the case with the resident. I agree with the resident's findings and plan as documented. SUBJECTIVE: OBJECTIVE: ASSESSMENT AND PLAN: <Juno Pereyra - Last Filed: 08/18/19 19:00>
== END 2019-08-05 14:18 | disposition home or self-care (01) | DRG 57 ==
LOC: JER 08:33 → JERBED 16:08 → J5S 17:30
PROVIDERS: ADMIT Internal Medicine; ATTEND Internal Medicine
DX: G20 Parkinson's disease (principal); R25.1 Tremor, unspecified; R26.81 Unsteadiness on feet; J45.909 Unspecified asthma, uncomplicated; F41.9 Anxiety disorder, unspecified
CPT/HCPCS: 36415; 70551-TC; 71046-TC-FY; 80048; 80053; 81003; 82607; 82746; 83735; 84100; 84443; 85025; 85027; 86593; 87086; 93005; 93010; 94640; 97116-GP; 97162-GP; 99284-25

== ENCOUNTER 2019-08-10 17:19 | Emergency (ER) | payer SELFPAY ==
[2019-08-10 18:13] VITALS: BMI 23.9
--- NOTE | 2019-08-10 19:09 | PDOC ---
History of Present Illness - General Chief Complaint: Syncope/Near Syncope Stated Complaint: FALL Time Seen by Provider: 08/10/19 18:29 - History of Present Illness Initial Comments: 08/10/19 19:37 58 yo F PMH tremors, ?Parkinson's, recently discharged on 08/05/19 after admission for inability to ambulate, MRI with increased signaling in posterior limbs of the internal capsules bilaterally, started on Lexapro 10mg and told to follow up with neurologist Dr. Kang and set up PET scan, presenting after fall. Patient has appointment with Dr. Kang this Monday. Reports that she has been ambulating at home with her mother's walker. Today, she felt like her legs got weak and that she might pass out, fell onto her knees , no head trauma or LOC. States that it feels similar to her prior symptoms. Complains of ongoing tremors in her hands and feet, as well as muscle pain in both thighs, unchanged from prior. Patient with slight temp to 100.3F. Denies CP, SOB, fevers/chills, abd pain, CARDOZA, N/V. Endorses presyncope and tremors. Past History - Past Medical History Allergies/Adverse Reactions: Allergies Allergy/AdvReac Type Severity Reaction Status Date / Time No Known Allergies Allergy Verified 08/10/19 18:10 Home Medications: Ambulatory Orders Albuterol Sulfate Inhaler - [Ventolin HFA Inhaler -] 2 inh PO Q4H PRN #1 inh Escitalopram Oxalate [Lexapro -] 10 mg PO DAILY #30 tablet 08/05/19 clonazePAM [Klonopin -] 0.5 mg PO BID #60 tablet MDD 1mg 08/05/19 Asthma: Yes (seasonal) COPD: No - Immunization History Immunization Up to Date: Yes - Psycho Social/Smoking Cessation Hx Smoking History: Never smoked Have you smoked in the past 12 months: No Number of Cigarettes Smoked Daily: 0 Cigars Per Day: 0 Hx Alcohol Use: No Drug/Substance Use Hx: No Substance Use Type: None Review of Systems - Review of Systems Comments:: 08/10/19 21:16 GENERAL/CONSTITUTIONAL: No fever or chills. No weakness. HEAD, EYES, EARS, NOSE AND THROAT: No change in vision. No ear pain or discharge. No sore throat. CARDIOVASCULAR: No chest pain or shortness of breath. RESPIRATORY: No cough, wheezing, or hemoptysis. GASTROINTESTINAL: No nausea, vomiting, diarrhea or constipation. GENITOURINARY: No dysuria, frequency, or change in urination. MUSCULOSKELETAL: No joint or muscle swelling or pain. No neck or back pain. SKIN: No rash NEUROLOGIC: No headache, vertigo, loss of consciousness, or change in strength/ sensation. Tremors in hands and feet. ENDOCRINE: No increased thirst. No abnormal weight change. HEMATOLOGIC/LYMPHATIC: No anemia, easy bleeding, or history of blood clots. ALLERGIC/IMMUNOLOGIC: No hives or skin allergy *Physical Exam - Vital Signs Last Vital Signs Temp Pulse Resp BP Pulse Ox 97.9 F 80 18 132/93 98 08/10/19 18:10 08/10/19 18:10 08/10/19 18:10 08/10/19 18:10 08/10/19 18:10 - Physical Exam 08/10/19 21:18 Gen: well-developed, well-nourished, NAD Neuro: AAOX4, CN II-XII intact, FTN intact, EOMI, PERRLA, 5/5 strength, SILT. Consistent tremors in feet, worse with movement. Tremors with movement of hands. HEENT: atraumatic, normocephalic, dry mucous membranes Neck: trachea midline, supple CV: regular rate, regular rhythm, no murmurs, rubs, or gallops Pulm: CTA b/l, no wheezing Abd: soft, non-distended, RLQ tenderness MSK: full ROM, intact pulses Extr: no edema, no deformities Skin: warm, dry ED Treatment Course - LABORATORY CBC & Chemistry Diagram: 08/10/19 19:30 08/10/19 19:30 Medical Decision Making - Medical Decision Making 08/10/19 20:15 Concern for presyncope vs existing neurological issue (Parkinsons v amyotrophic lateral sclerosis) v flu. - CBC, CMP - EKG, trop - CXR - flu swab - considering RLQ tenderness, will get CT abd/pelvis. - reassess 08/10/19 21:18 CXR with no acute pathology. 08/10/19 21:45 EKG normal sinus at 77 bpm, poor baseline quality, incomplete RBBB, T wave inversions in V1-V3. Will f/u CT scan. Likely dc for further outpatient follow up with Dr. Kang and outpatient PET. 08/11/19 00:43 Mass in anterior uterus measuring 4.5cm, likely fibroid. Will dc for further outpatient workup. Discharge - Discharge Information Problems reviewed: Yes Clinical Impression/Diagnosis: Tremors of nervous system Condition: Stable Disposition: HOME - Admission No - Follow up/Referral Referrals: Monroe Allen MD [Primary Care Provider] - - Patient Discharge Instructions Additional Instructions: You were seen after a fall due to your tremors. Your labs and imaging did not show any acute issues, however, it is extremely important that you follow up with your Monday appointment with Dr. Kang for further workup. It is also important that you have a PET scan performed. Please follow up with your primary care doctor within one week. Return to the ED if you develop worsening symptoms. - Post Discharge Activity
[2019-08-10 19:36] LABS: BASO % 1.5 % (0-2.0); EOS % 1.3 % (0-4.5); HEMATOCRIT 40.2 % (32.4-45.2); HEMOGLOBIN 13.2 GM/dL (10.7-15.3); LYMPH % 33.1 % (8-40); MCH 28.9 pg (25.7-33.7); MCHC 32.8 g/dl (32.0-36.0); MEAN CELL VOLUME 88.1 fl (80-96); MEAN PLT VOLUME 8.4 fl (7.5-11.1); MONO % 7.4 % (3.8-10.2); NEUT % 56.7 % (42.8-82.8); PLATELET COUNT 270 K/MM3 (134-434); RBC 4.56 M/mm3 (3.60-5.2); RDW 15.3 % (11.6-15.6); WHITE BLOOD COUNT 8.2 K/mm3 (4.0-10.0)
[2019-08-10 19:55] LABS: EPI CELLS 5.7 /HPF (0-5/HPF); HYALINE CASTS 0 /lpf (0-8); URINE APPEARANCE CLOUDY; URINE BACTERIA 145.5 /hpf (NEGATIVE); URINE BILIRUBIN NEGATIVE (NEGATIVE); URINE COLOR YELLOW; URINE GLUCOSE (UA) NEGATIVE (NEGATIVE); URINE KETONE TRACE (NEGATIVE); URINE LEUK ESTERASE NEGATIVE (NEGATIVE); URINE NITRITE NEGATIVE (NEGATIVE); URINE PROTEIN TRACE (NEGATIVE)
[2019-08-10 20:06] LABS: ALBUMIN 3.8 g/dl (3.4-5.0); BILIRUBIN,TOTAL 0.2 mg/dL (0.2-1); BLOOD UREA NITROGEN 12.2 mg/dL (7-18); CALCIUM 8.8 mg/dL (8.5-10.1); CREATININE 0.7 mg/dL (0.55-1.3); POTASSIUM 3.9 mmol/L (3.5-5.1); TOT PROT 7.4 g/dl (6.4-8.2)
[2019-08-10] MEDS ORDERED: ACETAMINOPHEN 1000 MG/100 ML VIAL (NON FORMULARY) IVPB ONE (20:22)
[2019-08-10] MEDS ORDERED: SODIUM CHLORIDE 0.9% 1000 ML INFUS.BAG IV ONE (20:22)
[2019-08-10 20:39] LABS: URINE CRYSTALS MODERATE /hpf
[2019-08-10] MEDS ORDERED: ACETAMINOPHEN INJECTION 100 ML IVPB ONE (20:40)
--- NOTE | 2019-08-10 21:07 | PDOC ---
Documentation entered by Juan Pablo Medina SCRIBE, acting as scribe for Wojciech Curtis MD. Wojciech Curtis MD: This documentation has been prepared by the Adam block Daniel, SCRIBE, under my direction and personally reviewed by me in its entirety. I confirm that the documentation accurately reflects all work, treatment, procedures, and medical decision making performed by me. Attending Attestation - Resident Resident Name: LucasGagewilliam - ED Attending Attestation I have performed the following: I have examined & evaluated the patient, The case was reviewed & discussed with the resident, I agree w/resident's findings & plan, Exceptions are as noted - HPI HPI: 08/10/19 19:14 The patient is a 58 year old female with a past medical history of tremors here today for evaluation of lightheadedness. The patient reports that since 06/25 she has had tremors which have caused her to fall before and now ambulates with her mothers walker. She reports that she is supposed to get a PET scan at [place] but has been unable to go. She states that she comes in today because she felt lightheaded and fell to her knees. Patient denies headache. Denies fever, chills. Denies chest pain, shortness of breath. Denies nausea, vomiting, diarrhea, abdominal pain. Allergies: NKA - Physicial Exam PE: 08/10/19 20:19 Vitals: Triage vital signs reviewed General Appearance: No acute distress, well nourished, well developed Head: Atraumatic Eyes: Pupils equal reactive round, extraocular movement intact Neck: Supple; No nuchal rigidity Chest Wall: Nontender Cardiac: Regular rate and rhythm, no murmurs, no rubs, no gallops Lungs: Clear to auscultation bilateral, good air movement bilaterally Abdomen: +right sided abdominal tenderness. Soft, nondistended, normal bowel sounds Extremities: Full range of motion to all extremities, no cyanosis, clubbing, or edema Skin: Warm and dry, no rashes or lesions, no rash, no petechiae Neuro: +diffuse tremors among the upper and lower extremities. AOX3; Cranial Nerves 2-12 grossly intact, Strength intact to all extremities, Sensation intact to all extremities Psych: Normal mood, normal affect - Medical Decision Making 08/11/19 01:15 Patient with known movement disorder has neurology follow-up on Monday presents to the ED for episode of lightheadedness 08/11/19 22:06 Labs imaging all within normal limits Patient feels better after IV fluids and Tylenol Has close follow-up Findings, need for follow-up and strict return instructions discussed with patient.
[2019-08-11 01:40] VITALS: BP 132/74; PULSE 69; TEMP 98.8
--- NOTE | 2019-08-11 17:02 | EKG ---
Test Reason : Blood Pressure : / mmHG Vent. Rate : 077 BPM Atrial Rate : 077 BPM P-R Int : 126 ms QRS Dur : 114 ms QT Int : 394 ms P-R-T Axes : 061 064 020 degrees QTc Int : 445 ms NORMAL SINUS RHYTHM INCOMPLETE RIGHT BUNDLE BRANCH BLOCK T WAVE ABNORMALITY, CONSIDER ANTERIOR ISCHEMIA ABNORMAL ECG WHEN COMPARED WITH ECG OF 30-JUL-2019 15:12, NO SIGNIFICANT CHANGE WAS FOUND Confirmed by ORVILLE CARO MD ([id number]) on 08/11/2019 5:02:23 PM Referred By: Confirmed By:ORVILLE CARO MD
== END 2019-08-11 01:40 | disposition home or self-care (01) ==
LOC: JER 17:19
PROC: 3E033NZ Introduction of Analgesics, Hypnotics, Sedatives into Peripheral Vein, Percutaneous Approach (ICD-10-PCS; principal; 2019-08-10)
DX: R25.1 Tremor, unspecified (principal); Z87.09 Personal history of other diseases of the respiratory system
CPT/HCPCS: 36415; 71045-TC-FY; 74177-TC; 80053; 81003; 84484; 85025; 87804; 93005; 93010; 99283-25; J0131; J7030; Q9967

== ENCOUNTER 2019-10-09 13:56 | Emergency (ER) | payer OTHER ==
[2019-10-09 14:04] VITALS: TEMP 98; BMI 24.8
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
--- NOTE | 2019-10-09 14:43 | PDOC ---
Attending Attestation - Resident Resident Name: Stephan Enrique - ED Attending Attestation I have performed the following: I have examined & evaluated the patient, The case was reviewed & discussed with the resident, I agree w/resident's findings & plan, Exceptions are as noted - HPI HPI: 10/09/19 14:40 58yoF w/ longstanding history of intermittent tremors after remote head strike. Has been followed by Neuro -- scheduled for outpatient PET scan that has not been completed yet. Recently residing in [facility], having insurance trouble getting PET scan approved. Episodes happen 3-4x / week. Pt had her typical episode of tremors today. Pt unclear why [facility] sent her to the ER as her symptommatology is unchanged and she feels fine. - Physicial Exam PE: 10/09/19 14:41 NAD no active tremors on examination A&O x 3 - Medical Decision Making 10/09/19 14:42 58yoF w/ chronic intermittent tremor disorder undergoing extensive outpatient neuro evaluation presnets for same, sent by her new rehab for evaluation. - DC back to [facility] with reassurance re: this is normal for this patient.
[2019-10-09 19:06] VITALS: BP 118/71; PULSE 76
== END 2019-10-09 19:43 ==
LOC: JER 13:56
DX: R25.1 Tremor, unspecified (principal); J45.909 Unspecified asthma, uncomplicated
CPT/HCPCS: 99281-25

== ENCOUNTER 2024-07-21 08:44 | Emergency (ER) | payer MEDICARE, OTHER ==
[2024-07-21 08:49] VITALS: BP 134/86; PULSE 85; RESP 18; TEMP 97.4; BMI 26.5
[2024-07-21] MEDS ORDERED: ACETAMINOPHEN INJECTION 100 ML ONE (10:05)
[2024-07-21 10:30] LABS: BASO % 1.2 % (0-2.0); EOS % 1.9 % (0-4.5); HEMATOCRIT 43.5 % (32.4-45.2); HEMOGLOBIN 14.3 GM/dL (10.7-15.3); LYMPH % 41.5 % (8-40); MCH 28.9 pg (25.7-33.7); MCHC 32.8 g/dl (32.0-36.0); MEAN PLT VOLUME 8.7 fl (7.5-11.1); MONO % 7.5 % (3.8-10.2); NEUT % 47.9 % (42.8-82.8); PLATELET COUNT 258 10^3/uL (134-434); RBC 4.94 M/mm3 (3.60-5.2); RDW 15.9 % (11.6-15.6); WHITE BLOOD COUNT 4.8 K/mm3 (4.0-10.0)
[2024-07-21] MEDS: SODIUM CHLORIDE 1,000 ML IV STA (10:34)
[2024-07-21] MEDS: ACETAMINOPHEN 1000 MG/100 ML BAG IVPB ONE (10:35)
[2024-07-21 10:49] LABS: ALBUMIN 3.6 g/dl (3.4-5.0); CALCIUM 9.2 mg/dL (8.5-10.1)
[2024-07-21 10:50] LABS: BLOOD UREA NITROGEN 14.8 mg/dL (7-18)
[2024-07-21 10:53] LABS: CREATININE 0.7 mg/dL (0.55-1.3)
[2024-07-21 10:54] LABS: BILIRUBIN,TOTAL 0.4 mg/dL (0.2-1); TOT PROT 7.8 g/dl (6.4-8.2)
== END 2024-07-21 11:43 | disposition home or self-care (01) ==
LOC: JERFT 08:44 → JER 08:44 → JERFT 11:43
PROC: 3E033NZ Introduction of Analgesics, Hypnotics, Sedatives into Peripheral Vein, Percutaneous Approach (ICD-10-PCS; principal; 2024-07-21)
DX: G25.2 Other specified forms of tremor (principal); G89.29 Other chronic pain
CPT/HCPCS: 36415; 80053; 85025; 96374; 99284-25; J0131